=== PATIENT | male | born 1990 | race Caucasian/White ===

== ENCOUNTER 2016-08-04 09:24 | Emergency (ER) | payer OTHER ==
[~2016-08-04] VITALS: Ht 182.9 cm; Wt 69.2 kg
[2016-08-04 09:28] VITALS: TEMP 96.8; Ht 182.9 cm; Wt 69.2 kg
--- OUTSIDE RECORDS SUMMARY | 2016-08-04 09:29 | XMS REPORT | Continuity of Care Document ---
Author Author [facility] Organization [facility] Address Unknown Phone Unavailable Allergies Active Description Code Type Severity Reaction Onset Reported/Identified Relationship to Patient Clinical Status Yes No Known Intolerances Drug Allergy Unknown N/A 12/23/2011 Yes No Allergy Information Drug Allergy N/A N/A 02/10/2013 Yes No Known Drug Allergies Drug Allergy N/A N/A 02/10/2013 Yes No Known Allergies No Known Allergies Drug Allergy Unknown N/A 08/30/2013 Yes No Known Allergies NKMA N/A N/A 09/28/2013 Medications Problems Date Dx Coded Attending Type Code Diagnosis Diagnosed By 02/10/2013 Aristeo Tomas DO Final 724.2 LUMBAGO 02/10/2013 Aristeo Tomas DO Final 840.9 SHOULDER/ARM NOS SPRAIN 02/10/2013 Aristeo Tomas DO Final 847.0 NECK SPRAIN 02/10/2013 Aristeo Tomas DO Final 923.00 CONTUSION SHOULDER REG 02/10/2013 Aristeo Tomas DO Admitting 959.09 FACE NECK INJURY 02/10/2013 Aristeo Tomas DO External E000.0 CIVILIAN ACTIVITY-PAID 02/10/2013 Aristeo Tomas DO External E849.3 ACC ON INDUST PREMISES 02/10/2013 Aristeo Tomas DO External E880.9 FALL ON STAIR/STEP NEC Procedures Results Test Result Range CBC W/DIFF - 12/12/15 17:00 BASOPHIL # 0.1 k/cumm 0.0-0.2 BASOPHIL % 1 % 0-1 EOSINOPHIL # 0.7 k/cumm 0.1-0.5 EOSINOPHIL % 9 % 2-4 GRANULOCYTE # 3.2 k/cumm 2.0-9.0 GRANULOCYTE % 42 % 50-75 LYMPHOCYTE # 3.1 k/cumm 1.0-4.0 LYMPHOCYTE % 40 % 20-30 MEAN CELL HGB 31.5 pg 27.0-33.0 MEAN CELL HGB CONCENTRATION 35.9 g/dL 32.0-37.0 MEAN CELL VOLUME 87.7 fl 80.0-100.0 MONOCYTE # 0.6 k/cumm 0.1-1.0 MONOCYTE % 8 % 4-6 RED BLOOD CELL 4.86 m/cumm 4.00-6.00 RED CELL DISTRIBUTION WIDTH 12.3 % 11.0- 15.6 WHITE BLOOD CELL 7.8 k/cumm 5.0-10.0 HEMOGLOBIN 15.3 gm/dL 14.0-18.0 HEMATOCRIT 42.6 % 40.0-54.0 PLATELET COUNT 238 k/cumm 150-450 METABOLIC PANEL, BASIC - 12/12/15 17:00 POTASSIUM 4.1 mmol/L 3.5-5.3 EST GFR (MDRD) > 60 mL/min > 59 ANION GAP 10 mmol/L 5-15 EST CrCl (CG) > 60 mL/min > 59 GLUCOSE 100 mg/dL 70-99 CALCIUM 9.5 mg/dL 8.5-10.1 BLOOD UREA NITROGEN 16 mg/dL 7-20 CREATININE 1.3 mg/dL 0.7-1.3 SODIUM 142 mmol/L 135-148 CHLORIDE 103 mmol/L 98-110 CARBON DIOXIDE 29 mmol/L 21-32 Encounters ACCT No. Visit Date/Time Discharge Status Pt. Type Provider Facility Loc./Unit Complaint [id number] 02/10/2013 07:09:00 2012 10:55:00 DIS Emergency Aristeo Tomas DO [facility] on [address]
[2016-08-04] MEDS ORDERED: NO ROUTINE MEDS (09:36)
--- NOTE | 2016-08-04 10:21 | ERPDOC ---
Departure Disposition Decision Date: Aug 04, 2016 Disposition Decision Time: 10:55 Disposition: 01 DISCHARGED HOME, SELF-CARE Impression Impression Impression: Primary Impression: Laceration of right middle finger Severity: Moderate Condition: Stable Seen By: Physician only Patient Instructions: Care For Your Stitches (ED) Problems/Meds/Labs Reviewed?: Yes Medications reviewed and manag: Yes Additional Instructions: See Workmen's Compensation physician for suture removal in 10 days Departure Forms: Return to Work/School Permit Return to Work/School Date: Aug 05, 2016 Restrictions: Must wear protective gloves whenever working with chemicals Follow up care ordered?: Yes Mental Status: Alert, Oriented Scripts Tramadol HCl (Tramadol HCl) 50 Mg Tablet 1-2 TAB PO Q6H Y for PAIN, #5 TAB Prov: NICOLE MARES MD 08/04/16 Cephalexin (Keflex) 500 Mg Capsule 500 MG PO TID for 7 Days, #21 CAP 0 Refills Prov: NICOLE MARES MD 08/04/16 HPI General Chief Complaint: Laceration Stated Complaint: HAND LAC Time Seen by Provider: 10:21 Source: patient Exam Limitations: no limitations HPI Hand/Forearm Initial Comments Patient is a 26-year-old male, since emergency room for evaluation of laceration of his right hand. 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 Occurred At: work Onset: Rapid Location: right: 3rd finger 1 - 2 cm laceration no active bleeding Allergies: Coded Allergies: No Known Allergies (Unverified , 08/04/16) Past History Past Medical History Pt denies signifigant PMH Surgical History Denies Surgeries Social History Tobacco Usage: none Alcohol Usage: none Drug Usage: none Review of Systems Constitutional Constitutional: DENIES: fever ENMT Sinuses: DENIES: congestion Cardiovascular Cardiac: DENIES: chest pain Pulmonary Respiratory: DENIES: cough GI Upper Abdomen: DENIES: pain Lower Abdomen: DENIES: pain Musculoskeletal General: see HPI Integumentary Skin: see HPI Endocrine Endocrine: DENIES: heat/cold intolerance Hematologic/Lymphatic Hematologic/Lymphatic: DENIES: anemia Exam General General Nourishment: well nourished, well developed Vital Signs: RN Vital Signs have been reviewed: Yes, Temperature: 96.8, Source : Temporal, Heart Rate: 62, Respiratory Rate: 20, BP: 108/66, Pulse Oximetry: 99 Height (Feet): 6 Height (Inches): 0 [place] Hand/Forearm Hand/Forearm : Upper Extremity: Right Elbow: NOT FOUND: deformity, ecchymosis, erythema Forearm: NOT FOUND: ecchymosis, erythema, swelling, tender Wrist: NOT FOUND: ecchymosis, erythema, snuff box tenderness, swelling, tender Hand: NOT FOUND: deformity, ecchymosis, erythema, laceration, swelling, tender Fingers: cap refill <2sec ea digit, laceration (patient has 2 cm laceration at the base of the middle digit dorsum lateral), soft touch intact, NOT FOUND: impaired abduction, impaired adduction, impaired extension, impaired flexion, impaired grasp, rotational deformity, subungual hematoma Radial Pulse: 3+ Ulnar Pulse: 3+ Neurologic RN Documented GCS Eye Opening: (4)Spontaneous Verbal: (5)Oriented Motor: (6)Obeys Commands Total: Differential Diagnoses Considering: Amputation, Cellulitis, Compartment Syndrome, Fracture, Laceration Procedures Procedures Performed Procedures Performed: Laceration Repair Laceration/Wound Repair Wound/Laceration Repair : Wound Location: upper extremity Wound Length (cm): 2 Depth, Shape: subcutaneous, linear Explored: clean Irrigated: saline Prep: sureclens Anesthesia: 1% Lidocaine Volume Anesthetic (ccs): 3 Type of Block: local Wound Debrided: moderate Repaired With: Sutures Suture Size: 4:0 Suture Type: prolene Number of Sutures: 3 Sterile Dressing Applied?: No Splint Applied?: No Sling Applied?: No Progress Results/Orders Orders Procedure Category Date Status Time Hydrocodone/Acetaminophen PHA 08/04/16 Complete ([place] 7.5/325 10:30 Lidocaine 1% PHA 08/04/16 Complete (Xylocaine 1%) 10:30 Fingers Right 2 View RAD 08/04/16 Resulted MIN 10:25 Tetanus,Diphth,A PHA 08/04/16 Complete Pertus (Tdap) (Adacel) 10:30 Dressing (Ed) EDM 08/04/16 Transmitted 10:58 Irrigate/Clean Wound EDM 08/04/16 Transmitted 10:58 Neomycin/Polymyxin/Bacitracin PHA 08/04/16 Complete (Neosporin 11:00 Medications Current ED Medications Acetaminophen/ Hydrocodone Bitart ([place] 7.5/325) 1 tab O ONCE PO Last administered on 08/04/16 10:43; Start 08/04/16 at 10:30; Stop 08/04/16 at 10:31 ; Status DC Lidocaine HCl (Xylocaine 1%) 100 mg O ONCE INFIL Last administered on t 10:43; Start 08/04/16 at 10:30; Stop 08/04/16 at 10:31; Status DC Diphtheria/ Tetanus/Acell Pertussis (Adacel) 0.5 ml O ONCE IM ; Start 08/04/16 at 10:30; Stop 08/04/16 at 10:30; Status DC Neomycin/ Polymyxin/ Bacitracin (Neosporin) 1 applic O ONCE TOP ; Start at 11:00; Stop 08/04/16 at 11:01; Status DC Xray Xray : Xray: Finger(s) R Interpretation: Normal, Interpreted by NICOLE Hernandez MD Aug 04, 2016 10:21
[2016-08-04] MEDS ORDERED: TETANUS,DIPHTH,a PERTUS (Tdap) 0.5 ML VIAL IM ONE (10:30)
[2016-08-04] MEDS ORDERED: LIDOCAINE 1% (10mg/ml) 30ml SDV INFIL ONE (10:30)
--- OUTSIDE RECORDS SUMMARY | 2016-08-04 10:30 | XMS REPORT | Continuity of Care Document ---
Author Author [facility] Organization [facility] Address Unknown Phone Unavailable Allergies Active Description [...] Status Pt. Type Provider Facility Loc./Unit Complaint [id number] 02/10/2013 07:09:00 2012 10:55:00 DIS Emergency Aristeo Tomas DO [facility] on [address]
--- NOTE | 2016-08-04 10:49 | NUR ---
WOUND CARE WOUND CLEANSED WITH CHLORHEXADINE SCRUB AND NS
--- NOTE | 2016-08-04 10:50 | NUR ---
PROVIDER DR MARES AT BEDSIDE TO REPAIR LAC
[2016-08-04] MEDS ORDERED: TRAM50TA4 PO (10:57)
[2016-08-04] MEDS ORDERED: CEPH-583 PO (10:57)
[2016-08-04] MEDS ORDERED: NEOMYCIN/POLYM/BACITR OINT PACKET TOP ONE (11:00)
[2016-08-04 11:04] VITALS: BP 114/56; PULSE 61; RESP 18; O2SAT 98
--- NOTE | 2016-08-04 11:04 | NUR ---
DISCHARGE WRITTEN INSTRUCTIONS WITH KEFLEX AND TRAMADOL RX REVIEWED AND SENT WITH PT. PT VERBALIZES UNDERSTANDING OF DI AND MEDICATIONS, DENIES QUESTIONS. PT AMBULATES OUT OF ER WITH STEADY GAIT AT THIS TIME.
--- NOTE | 2016-08-04 12:12 | DI ---
EXAM: FINGERS RIGHT 2 VIEW MIN LOCATION OF DICTATION: [place] HISTORY: ITS.REASON: right 3rd digit focus proximal phalanx, foreign body versus bony COMPARISON: No prior studies available for comparison. FINDINGS: There is normal alignment without dislocation or subluxation. There are no visible fracture deformities demonstrated. Normal osseous mineralization is demonstrated. No significant degenerative changes. Mild soft tissue swelling about the distal third digit. IMPRESSION: 1. No evidence for acute fracture, or malalignment. .
== END 2016-08-04 11:04 | disposition home or self-care (01) ==
LOC: ED 09:24
DX: S61.212A Laceration without foreign body of right middle finger without damage to nail, initial encounter (principal); W26.0XXA Contact with knife, initial encounter; Y93.89 Activity, other specified; Y92.9 Unspecified place or not applicable; Y99.0 Civilian activity done for income or pay